=== PATIENT | female | born 1995 | race Caucasian/White ===

== ENCOUNTER 2017-04-09 13:40 | Emergency (ER) | payer SELFPAY ==
[~2017-04-09] VITALS: Ht 162.6 cm; Wt 56.8 kg
[2017-04-09 13:43] VITALS: BP 141/74; PULSE 90; TEMP 98.4
== END 2017-04-09 16:40 | disposition home or self-care (01) ==
LOC: COL.ER 13:40
DX: T76.21XA Adult sexual abuse, suspected, initial encounter (principal)
CPT/HCPCS: J0696

== ENCOUNTER → 2017-04-09 | Outpatient (REF) ==
[~2017-04-09] VITALS: Ht 162.6 cm; Wt 56.8 kg
[2017-04-09 14:01] VITALS: BP 141/74; PULSE 90; TEMP 98.4
== END ==
LOC: COL.ER 14:00
DX: T74.21XA Adult sexual abuse, confirmed, initial encounter (principal); Y08.89XA Assault by other specified means, initial encounter; Y07.9 Unspecified perpetrator of maltreatment and neglect